=== PATIENT | male | born 1960 | race Caucasian/White ===

== ENCOUNTER 2024-07-14 00:29 | Emergency (ER) | payer MEDICAID, SELFPAY ==
--- OUTSIDE RECORDS SUMMARY | 2024-07-14 00:31 | XMS_ITS | Clinical Summary ---
Author Organization [facility] Address [address] [place] [address] Care Team Providers Care Physical Laboratory Assistant Name Role Phone [facility] Primary Care Provider [phone] Allergies Active Allergy Reactions Criticality Noted Date Comments Tobramycin Erythema 02/28/2010 Medications aspirin (ECOTRIN) 81 mg enteric coated tablet Take 1 tablet by mouth once daily with a meal. 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 Not on file Not on file Obstetrics History Last Filed Vital Signs Vital Sign Reading Time Taken Comments Blood Pressure 124/84 08/01/2015 1:19 PM CDT Pulse 72 08/01/2015 1:19 PM CDT Temperature 36.5 C (97.7 F) 08/01/2015 1:19 PM CDT Respiratory Rate 16 02/28/2010 3:48 AM CDT Oxygen Saturation 98% 02/28/2010 3:48 AM CDT Inhaled Oxygen Concentration - - Weight 112.5 kg (248 lb) 08/01/2015 1:19 PM CDT Height 197.5 cm (6' 5.76) 08/01/2015 1:19 PM CD T Body Mass Index 28.84 08/01/2015 1:19 PM CDT Plan of Treatment Health Maintenance Due Date Last Done Comments Tdap 1971 Depression screening for age 12+ 1972 HIV for age 15-65 1975 Hepatitis C screening for age 18-79 1978 Tetanus booster 1980 Colonoscopy through age 75 2005 Lipids for age 45-75 2005 Pneumococcal series for age 50+ (1 of 1 - PCV) 010 Zoster (shingles) series for age 50+ (1 of 2) 03/30/20 10 BMI (ht and wt on same day) for age 18+ 07/31/2016 0 08/01/2015 COVID-19 vaccine series ( - 2023- season) Influenza Vaccine (#1) 2023 RSV vaccine for adults or pr egnancy (1 - 1-dose 75+ series) 2035 Insurance [facility] Care Teams Physical Laboratory Assistant Relationship Specialty Start Date End [place] [facility] [address] [place] [id number] PCP - General 12/16/17
--- OUTSIDE RECORDS SUMMARY | 2024-07-14 00:31 | XMS_ITS | Clinical Summary ---
Author Organization [facility] Address [address] [place] [address] Care Team Providers Care Percussion Teacher Name Role Phone Chema Rogers Primary Care Provider Unavailabl e Allergies Active Allergy Reactions Criticality Noted Date Comments Dust Mites 06/17/2003 Molds & Smuts 06/17/2003 Tobramycin 03/13/2003 Medications ASPIRIN 81 MG OR TABS 1 tab po QD (Once per day) 3 Active order for DMEIndications: Foot pain, bilateral,Pes cavus,Plantar fasciitis, bilateral Equipment being ordered: night splints 2 Device 9 Active Active Problems Problem Noted Date Diagnosed Date CARDIOVASCULAR SCREENING; LDL GOAL LESS THAN 100 02/26/2010 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 Provider to review SINUSITIS MAXILLARY, CHRONIC 10/03/2004 Allergic rhinitis Overview (01/27/2015): Problem list name updated by automated process. Provider to review Immunizations Name Administration Dates Next Due Influenza (IIV3) PF 03/14/2006,02/18/1997 TD,PF 7+ (Tenivac) 07/03/2005 Family History Medical History Relation Comments Prostate Cancer Father Cerebrovascular Disease Mother Eye Disorder Mother Retinal problem C.A.D. Paternal Grandfather Neurologic Disorder Paternal Grandfather Neurologic Disorder Paternal Grandmother Anesthesia Reaction No family hx of Blood Disease No family hx of Breast Cancer No family hx of Cancer - colorectal No family hx of Osteoporosis No family hx of Thyroid Disease No family hx of Relation Status Comments Brother Alive Hyperlipidemia Daughter 1 Alive Daughter 2 Alive Father Alive Maternal Grandfather Maternal Grandmother Alive Mother Alive Valvular heart d isease; CVA Paternal Grandfather Paternal Grandmother Son Alive Social History Tobacco Use Types Packs/Day Years Used Date Smoking Tobacco: Never Smokeless Tobacco: Never Tobacco Cessation:Counseling Given: No Alcohol Use Standard Drinks/Week Comments Yes 0 (1 standard drink = 0.6 oz pur e alcohol) couple beers a month Sex and Gender Information Value Date Recorded Sex Assigned at Not on file 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 Gender Identity Not on file Sexual Orientation Not on file Occupation Industry Job Start Date Job End Date Sales Not on file Not on file Not on file Last Filed Vital Signs Vital Sign Reading Time Taken Comments Blood Pressure 144/85 01/10/2019 9:57 PM CDT Pulse 73 01/10/2019 8:27 PM CDT Temperature 36.9 C (98.5 F) 01/10/2019 9:57 PM CDT Respiratory Rate 18 01/10/2019 9:57 PM CDT Oxygen Saturation 99% 01/10/2019 8:27 PM CDT Inhaled Oxygen Concentration - - Weight 115.7 kg (255 lb) 12/17/2018 10:46 AM CDT Height 195.6 cm (6' 5) 12/17/2018 10:46 AM CDT Body Mass Index 30.24 12/17/2018 10:46 AM CDT Plan of Treatment Not on file Insurance [employer] [facility] Address: [facility] [id number] [place] [address] Advance Directives For more information, please contact: [phone] * No Code Status (Latest Code Status on File) Date Activated Date Inactivated Comments 08/26/2003 10:43 AM 08/26/2003 10:43 AM Care Teams Percussion Teacher Relationship Specialty Start Date End Date Chema Rogers PCP - General 01/10/19
[2024-07-14 00:35] VITALS: BP 116/75; PULSE 66; RESP 16; TEMP 36.7; O2SAT 98; BMI 27.3
--- NOTE | 2024-07-14 01:12 | ED_ITS ---
HPI - General Adult General Chief complaint: Eye Problems Stated complaint: L eye pain Time Seen by Provider: 07/14/24 00:50 Source: patient Mode of arrival: ambulatory Limitations: no limitations History of Present Illness HPI narrative: 64-year-old male presents the emergency department for evaluation of irritation of the left eye for the past for hours. No trauma or injury. Was sitting at his chair watching TV when symptoms started. Feels like a foreign body in the eye. He has noticed a clear bump in that area tonight which he is uncertain of the duration. No real loss of vision but it is a little sensitive to light, increased drainage and the sclera appears a little bit red. No prior history of similar symptoms. He tried looking for a foreign body which is when he noted the clear bump. Could not find any other source for his irritation and pain. No fever, no trauma or injury, no vision loss, no neurological changes. Has a sensitivity to tobramycin per his report. Does follow with an eye doctor through the [facility]. Reports is past medical history is notable for history of coronary artery disease, on medication for this. No recent changes in medications, nonsmoker. ROS is notable for the ocular symptoms only, otherwise denies acute symptoms times 12 systems. Related Data Home Medications ?Medication ?Instructions ?Recorded ?Confirmed aspirin 325 mg capsule 325 mg PO DAILY 07/14/24 07/14/24 atorvastatin 40 mg tablet 40 mg PO DAILY 07/14/24 07/14/24 dapagliflozin propanediol 10 mg 10 mg PO DAILY 07/14/24 07/14/24 tablet (Farxiga) metoprolol tartrate 25 mg tablet 25 mg PO BID 07/14/24 07/14/24 sacubitril 24 mg-valsartan 26 mg 0.5 tab PO BID 07/14/24 07/14/24 tablet (Entresto) tirzepatide (weight loss) 2.5 2 mg subcut 07/14/24 mg/0.5 mL subcutaneous pen injector (Zepbound) Allergies Allergy/AdvReac Type Severity Reaction Status Date / Time tobramycin Allergy eye Verified 07/14/24 00:38 swelling Exam Const: Vital Signs, click to edit/add: Vital Signs - 24 hr 07/14/24 00:35 Temperature 98.1 F Pulse Rate [Pulse Oximeter] 66 Respiratory Rate 16 Blood Pressure [Ri ght Upper Arm] 116/75 Pulse Oximetry 98 Oxygen Delivery Me thod Room Air Documenting provider has reviewed patient's vital signs: yes Common normals: no apparent distress General appearance: cooperative and well kempt HENMT: Common normals: normocephalic, moist oral mucous membranes and oropharynx normal Head and scalp: normocephalic Eye: Common normals: PERRL and EOMs intact bilaterally Pupil: PERRL Other: Left eye with 2 mm clear bump at the junction between the cornea and the sclera at the 3 o'clock position. Mild redness to the sclera surrounding, clear watery discharge, no purulent drainage. Conjunctiva are not swollen. Normal-appearing cornea, pupil and iris. Right eye normal in appearance, no drainage. Neck & C-Spine: Common normals: full ROM Resp: Common normals: normal respiratory effort Effort & inspection: able to speak in complete sentences Neuro: Common normals: moves all extremities Speech: speech normal Psych: Appearance: well kempt Attitude: engaged Mood and affect: euthymic mood Insight: insight good Skin: Common normals: no rashes or lesions noted General skin exam: no rashes or lesions noted Course Course ED Course: No obvious initial foreign body noted. Eye is irrigated with saline and re- examined with no signs of foreign body. For send his used to further examine IN under black light, a small corneal abrasion is noted just adjacent to the clear bump at the 3 o'clock position. No evidence of otherwise foreign body noted. Remainder of cornea, sclera and conjunctiva are closely examined after this with no further signs of foreign body. I is then irrigated to remove the for 7, 2 drops of tetracaine are placed for anesthesia and then erythromycin is applied. Patient did have improvement of symptoms with the tetracaine. Patient counseled that the bump is typically a benign small growth associated with prolonged sun exposure. There typically not dangerous but does need to be examined by an eye doctor to be sure is I do not have a quit min in the emergency room to further clarify this. It seems to have rubbed on the cornea and caused a very small abrasion. Erythromycin ointment is provided and he will continue to use this every 3 hours while awake for 48 hours. Alarm symptoms reviewed that would warrant ED presentation. Okay to use Tylenol and ibuprofen. If symptoms fail to improve after 48 hours, please follow-up with eye doctor. No driving until asymptomatic which will likely be 24 hours. Written instructions provided, all questions answered. Vital Signs Vital signs: Initial Vital Signs Temperature 98.1 F 07/14/24 00:35 Temperature Source Temporal Artery Scan 07/14/24 00:35 Pulse Rate 66 07/14/24 00:35 Respiratory Rate 16 07/14/24 00:35 Blood Pressure 116/75 07/14/24 00:35 Blood Pressure Mean 88 07/14/24 00:35 Blood Pressure Position Sitting 07/14/24 00:35 Pulse Oximetry 98 07/14/24 00:35 Oxygen Delivery Method Room Air 07/14/24 00:35 Vital Signs Temperature 98.1 F 07/14/24 00:35 Pulse Rate 66 07/14/24 00:35 Respiratory Rate 16 07/14/24 00:35 Blood Pressure 116/75 07/14/24 00:35 Pulse Oximetry 98 07/14/24 00:35 Oxygen Delivery Method Room Air 07/14/24 00:35 Temperature 98.1 F 07/14/24 00:35 Pulse Rate 66 07/14/24 00:35 Respiratory Rate 16 07/14/24 00:35 Blood Pressure 116/75 07/14/24 00:35 Pulse Oximetry 98 07/14/24 00:35 Oxygen Delivery Method Room Air 07/14/24 00:35 Discharge Plan Discharge Clinical Impression: Corneal abrasion, Pinguecula of left eye Patient Disposition: Home w/ Parent or Adult Condition: Stable Instructions: Corneal Abrasion (DC), Pinguecula (ED) Additional Instructions: As we discussed, there is a small abrasion which is a scratch to the eyeball at the 3 o'clock position on the cornea. This is adjacent to a benign-appearing bump on your sclera called a pingueculae. These are typically not dangerous but I would need more equipment to be able to diagnose it properly. Please make a follow-up appointment with her eye doctor within the next few weeks to have this looked at. As they grow, they can scratch the cornea based on their location and cause irritation. They are often more common with age and are due to sun exposure if I am correct in the diagnosis. As far as the corneal abrasion, this will close within 24 hours. Please apply the ointment that your given in the ED every 3 hours while you are awake. Apply a cool compress and hang out in a dark room if the symptoms are bothersome. You may use Tylenol 1000 mg every 6 hours and or ibuprofen 600 mg every 6 hours as needed to help with discomfort. If symptoms fail to improve within 48 hours, I would recommend more urgent evaluation with your eye doctor. He will need to use the ointment for 48 hours. If you have loss of vision, significant neurological worsening, bleeding or purulent discharge, you should come back to emergency department. No driving until your symptoms improve as your vision could be impaired. Activity Level: Activity as Tolerated Discharge Diet: Regular Prescriptions: No Action atorvastatin 40 mg tablet 40 mg PO DAILY metoprolol tartrate 25 mg tablet 25 mg PO BID dapagliflozin propanediol [Farxiga] 10 mg tablet 10 mg PO DAILY Entresto 24-26 mg tablet 0.5 tab PO BID Zepbound 2.5 mg/0.5 mL pen injector 2 mg subcut aspirin 325 mg capsule 325 mg PO DAILY Follow Up/Referrals: Roma Paul PA-C [Physician Ride Assembly Supervisor] - Stand Alone Forms: SSN Logistics Info Instructions
--- OUTSIDE RECORDS SUMMARY | 2024-07-14 01:18 | XMS_ITS | Clinical Summary ---
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 Advance Directives For more information, please contact: [phone] * No Code Status (Latest Code Status on File) Date Activated Date Inactivated Comments 08/26/2003 10:43 AM 08/26/2003 10:43 AM Care Teams Test Department Helper Relationship Specialty Start Date End Date Chema Rogers PCP - General 01/10/19
--- OUTSIDE RECORDS SUMMARY | 2024-07-14 01:18 | XMS_ITS | Clinical Summary ---
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
== END 2024-07-14 01:28 | disposition home or self-care (01) ==
LOC: ED 01:16
PROVIDERS: Emergency Provider Family Medicine
DX: S05.02XA Injury of conjunctiva and corneal abrasion without foreign body, left eye, initial encounter (principal); H10 Conjunctivitis
CPT/HCPCS: 99283; A9270